=== PATIENT | male | born 1955 | race Caucasian/White ===

== ENCOUNTER 2020-02-01 01:36 | Emergency (ER) | payer MEDICARE, OTHER, SELFPAY ==
[2020-02-01] VITALS (7 sets, daily range): BP systolic 148–185; BP diastolic 78–89; PULSE 60–68; RESP 16; TEMP 36.4; O2SAT 97–98; BMI 32.7
[2020-02-01 02:43] LABS: WBC Urine None Seen (0-5/HPF)
[2020-02-01 02:49] LABS: Appearance Urine UA CLOUDY; Bilirubin Urine UA NEGATIVE (NEGATIVE); Glucose Urine UA NEGATIVE (Negative); Ketones Urine UA TRACE (NEGATIVE); Leukocyte Esterase Urine UA TRACE (NEGATIVE); Nitrite Urine UA POSITIVE (Negative); Occult Blood Urine UA 3+ (Negative); Protein Urine UA 3+ (Negative); Specific Gravity Urine UA 1.025 (1.000-1.035); Urobilinogen Urine UA 0.2 E.U./dL (0.2); pH Urine UA 6.5 (4.5-8.0)
[2020-02-01 02:52] LABS: Color Urine UA BROWN; RBC Urine >100/HPF (0-5/HPF)
[2020-02-01 02:53] LABS: Amorphous Sediment Urine 1+; Bacteria Urine Moderate (10-30); Mucus Urine 1+ (Negative); Squamous Epithelial Cell Urine 0-1 /HPF (0-5/HPF)
[2020-02-01 02:54] LABS: Culture Indicated Urine Specimen Cultured
--- NOTE | 2020-02-01 03:17 | ED_ITS ---
HPI - Male Genitourinary General Chief complaint: Urogenital-Male Stated complaint: prostate sgy December 31, bleeding, can't pee Time Seen by Provider: 02/01/20 01:50 Source: patient Mode of arrival: Ambulatory Limitations: no limitations History of Present Illness HPI Narrative: 64-year-old gentleman status post event she assisted prostatectomy 6 weeks ago at [facility] in [place] to treat prostate cancer. He had a Klein catheter in for approximately 10 days postop period was doing well with the catheter out until yesterday when he noticed significant clots. The clots became significant enough that they caused an obstructive uropathy. He tried using is a tie to break up the clot but was unsuccessful. He comes into the emergency room with acute urinary retention. Review of Systems Review of Systems Narrative: Pertinent positive and negative findings as per HPI Remainder of review of systems is otherwise unremarkable for Constitutional: Fevers, chills, weakness ENT: No sore throat, neck pain, ear pain CV: Chest pain, palpitations, dyspnea on exertion Respiratory: Cough, wheeze, dyspnea GI: Nausea, vomiting, diarrhea, change in bowel habits, black or bloody stools Neuro: Syncope, dizziness, tingling Patient History Medical History (Updated 02/01/20 @ 03:40 by Blanca Stephen MD) Prostate cancer (Acute) Surgical History (Updated 02/01/20 @ 03:40 by Blanca Stephen MD) H/O prostatectomy (Acute) Social History Smoking Status: Never smoker Smoking Status: Never smoker alcohol intake frequency: a few times a week Alcohol type: hard liquor Substance Use Type: does not use Exam Narrative Exam Narrative: General: Alert appropriate in no acute distress Respiratory: Able to speak in full sentences, no obvious respiratory distress Abdomen: Nontender, good bowel tones, no flank pain, surgical sites are healing nicely Skin: No obvious rashes, warm and dry Neurologic: Grossly intact no obvious asymmetries or abnormalities Psych, appropriate insight and affect, cooperative Three way Klein catheter is placed without difficulty. Initially dark red urine with significant clots. Cleared nicely to minimal blood-tinged color Initial Vital Signs Initial Vital Signs: Vital Signs Temperature 97.6 F 02/01/20 01:47 Pulse Rate 62 02/01/20 01:47 Respiratory Rate 16 02/01/20 01:47 Blood Pressure 185/83 H 02/01/20 01:47 Pulse Oximetry 97 02/01/20 01:47 Course Orders Ordered: ED Orders 02/01/20 02:32 Urinalysis and Microscopic Stat Urine Culture Stat Discontinued Medications Ciprofloxacin (Cipro) 500 mg PO NOW ONE Stop: 02/01/20 03:18 Last Admin: 02/01/20 03:29 Dose: 500 mg Documented by: FRANCESCO Vital Signs Vital signs: Vital Signs - 8 hr 02/01/20 01:47 Temperature 97.6 F Pulse Rate 62 Respiratory Rate 16 Blood Pressure 185/83 H Pulse Oximetry 97 MDM - Male Genitourinary Medical Records Attestation: I reviewed the patient's medical records. Lab Data Attestation: I reviewed the patient's lab results. Labs: Lab Results 02/01/20 Range/Units 02:32 Urine Color Brown Urine Appearance Cloudy Urine pH 6.5 (4.5-8.0) Ur Specific [place] 1.025 (1.000-1.035) Urine Protein 3+ H (Negative) Urine Glucose (UA) Negative (Negative) g/dL Urine Ketones Trace H (NEGATIVE) Urine Occult Blood 3+ H (Negative) Urine Nitrate Positive (Negative) Urine Bilirubin Negative (NEGATIVE) Urine Urobilinogen 0.2 (0.2) E.U./dL Ur Leukocyte Esterase Trace H (NEGATIVE) Urine RBC >100/hpf H (0-5/HPF) Urine WBC None seen (0-5/HPF) Ur Squamous Epith Cells 0-1 /hpf (0-5/HPF) Amorphous Sediment 1+ Urine Bacteria Moderate (10-30) H (None) Urine Mucus 1+ H (Negative) Ur Culture Indicated? Specimen cultured [facility] Narrative Medical decision making narrative: Blood clots with acute urinary retention 6 weeks post surgery. He is not on any blood thinners. No pain or indication of infection. Three way Klein catheter is placed have asked him to leave it for at least 3 days. He is currently traveling is unsure where he will be in 3 days but feels he can access medical care without difficulty. He is safe for home discharge at this time. Discharge Plan Departure Patient Disposition: Home Clinical Impression: Acute retention of urine Instructions: DI for Urinary Retention in Men Activity Restrictions/Additional Instructions: Thank you for coming in today I suspect that the bleeding that you noted is related to your recent surgery and healing. Because there was so much blood and then so much fluid to flush her bladder we were not able to get a urine sample but I would recommend 3 days of ciprofloxacin to prevent any infections. A 3 way Klein catheter was placed and your bladder was irrigated with 6 L of fluid. By the end of the irrigation, the fluid was essentially clear and no significant clots were felt to be remaining in the bladder. I am going to suggest a Klein catheter stay in place for another 3 days and not be removed if they are still clots that are coming out. You will need to be re-evaluated in 3 days to help with Klein catheter removal. You can follow-up in our emergency department, with your urologist if your in [place] or with a primary care/urgent care/emergency department in the city that you are visiting in 3 days time. Please return to the emergency room if you develop any fevers, the catheter is blocked, your having worsening bleeding or you develop new or different concerning symptoms. I hope you continue to heal completely
[2020-02-01] MEDS: CIPROFLOXACIN 500 MG TABLET PO (03:29)
--- NOTE | 2020-02-01 04:01 | PC.NURSE ---
leg bag applied and education on care of rivera given.
== END 2020-02-01 04:02 | disposition home or self-care (01) ==
PROVIDERS: Emergency Provider Emergency Medicine
DX: R33.8 Other retention of urine (principal)
CPT/HCPCS: 51701; 51798; 81001; 87086

== ENCOUNTER 2020-02-01 10:37 | Emergency (ER) | payer MEDICARE, OTHER, SELFPAY ==
[2020-02-01 10:54] VITALS: BP 141/85; PULSE 65; RESP 19; TEMP 37.1; O2SAT 97; BMI 32.7
--- NOTE | 2020-02-01 11:09 | ED_ITS ---
HPI - Male Genitourinary <Amaris Escalona PA-C - Last Filed: 02/01/20 21:10> General Chief complaint: Urogenital-Male Stated complaint: placing catheter seen last evening Time Seen by Provider: 02/01/20 11:07 Source: patient Mode of arrival: Ambulatory Limitations: no limitations History of Present Illness HPI Narrative: This is a 64-year-old who was seen in the emergency department last night, he had a prostatectomy approximately 4 weeks ago in [place]. He was doing well but then in the last few weeks has been passing blood and clots, came to the ED last night because he could not urinate. He had a Klein catheter placed and flushed and was doing better was sent home with a plan to keep the catheter in for 3 days, however last night he states he had a lot of irritation with it this morning he passed some clots and was having a lot of difficulty urinating again, he called his urologist in [place] and they advised he should come back to the emergency department and get it set up for system to possibly self flush, the suspicion is that he is still dealing with healing process from his surgery, he is passing some clotting blood but otherwise has been doing well, without other symptoms except he states he has been a little bit more sleepy than usual for the past week stating a week ago I was full of piss and vinegar, this week not so much.This morning he says it after he removed the catheter there was ?a blood clot that looked like a long worm at the tip? He states he might be able to pee right now.? He denies any other symptoms. MD Complaint: dysuria and other (urinary retention/blood clots) Onset (ago): week(s) Related Data Previous Rx's Medication Instructions Recorded ciprofloxacin HCl [Cipro] 500 mg PO BID #6 tab 02/01/20 tizanidine 4 mg PO Q8H PRN #20 cap 02/01/20 Allergies Allergy/AdvReac Type Severity Reaction Status Date / Time No Known Drug Allergies Allergy Verified 02/01/20 10:59 Review of Systems <Amaris Escalona PA-C - Last Filed: 02/01/20 21:10> Review of Systems Narrative: GENERAL: Denies chills, fatigue, malaise, fever, sweats. HEENT: Denies sinus pain, ear pain, sore throat, difficulty swallowing, dizziness. RESPIRATORY: Denies dyspnea, cough, wheezing, hemoptysis, sputum. CARDIOVASCULAR: Denies chest pain, palpitations, orthopnea, edema, GASTROINTESTINAL: Denies nausea, vomiting, abdominal pain, diarrhea, constipation, melena. : Denies dysuria, frequency, incontinence, positive for recent hematuria with some clotting, and urinary retention. MUSCULOSKELETAL: denies weakness, joint pain, or bony pain SKIN: Denies rash, skin lesions, or other NEUROLOGIC: Denies weakness, headache, numbness, change in speech, confusion, seizures, incoordination. PSYCHIATRIC: No concerning psychosocial issues. 12 point review of systems is negative except for those stated above Patient History <Amaris Escalona PA-C - Last Filed: 02/01/20 21:10> Medical History Prostate cancer (Acute) Surgical History H/O prostatectomy (Acute) Social History Smoking Status: Never smoker Smoking Status: Never smoker alcohol intake frequency: a few times a week Alcohol type: hard liquor Substance Use Type: does not use Exam <Amaris Escalona PA-C - Last Filed: 02/01/20 21:10> Narrative Exam Narrative: GENERAL: 64 year old patient appears stated age. Well-nourished, well-developed patient, in mild distress. HEAD: Atraumatic. Normocephalic. EYES: Pupils equal round and reactive. Extraocular motions intact. No scleral icterus. No injection or drainage. ENT: Nose without bleeding, purulent drainage. Airway patent. NECK: Trachea midline. Non tender CARDIOVASCULAR: Regular rate and rhythm without murmurs, gallops, or rubs. RESPIRATORY: Clear to auscultation. Breath sounds equal bilaterally. No wheezes, rales, or rhonchi. GASTROINTESTINAL: Abdomen soft, there is very slight tenderness of the RLQ, otherwise non-tender, nondistended. : Exam is deferred EXTREMITIES: No edema or joint tenderness. BACK: Nontender without deformity or crepitance. No flank tenderness. NEURO: AOx3. SKIN: No rash or erythema of visible areas Initial Vital Signs Initial Vital Signs: Vital Signs Temperature 98.7 F 02/01/20 10:54 Pulse Rate 65 02/01/20 10:54 Respiratory Rate 19 02/01/20 10:54 Blood Pressure 141/85 H 02/01/20 10:54 Pulse Oximetry 97 02/01/20 10:54 <Demar Rivera MD - Last Filed: 02/02/20 07:34> Initial Vital Signs Initial Vital Signs: Vital Signs Temperature 98.7 F 02/01/20 10:54 Pulse Rate 65 02/01/20 10:54 Respiratory Rate 19 02/01/20 10:54 Blood Pressure 141/85 H 02/01/20 10:54 Pulse Oximetry 97 02/01/20 10:54 Scores <Amaris Escalona PA-C - Last Filed: 02/01/20 21:10> GCS [place] coma scale eye opening: Spontaneous [place] coma scale verbal response: Orientated [place] coma scale motor response: Obey commands [place] coma scale total score: 15 Course <Amaris Escalona PA-C - Last Filed: 02/01/20 21:10> Orders Ordered: Discontinued Medications Lidocaine HCl (Urojet) 5 ml TOP NOW ONE Stop: 02/01/20 13:20 Last Admin: 02/01/20 14:00 Dose: 5 ml Documented by: ALE Vital Signs Vital signs: Vital Signs - 8 hr 02/01/20 14:26 Pulse Rate 65 Blood Pressure 126/75 Pulse Oximetry 98 <Demar Rivera MD - Last Filed: 02/02/20 07:34> Orders Ordered: Discontinued Medications Lidocaine HCl (Urojet) 5 ml TOP NOW ONE Stop: 02/01/20 13:20 Last Admin: 02/01/20 14:00 Dose: 5 ml Documented by: ALE Vital Signs Vital signs: Vital Signs - 8 hr 02/01/20 14:26 Pulse Rate 65 Blood Pressure 126/75 Pulse Oximetry 98 MDM - Male Genitourinary <Amaris Escalona PA-C - Last Filed: 02/01/20 21:10> Differential Diagnosis Differential diagnosis: Likely urinary tract infection, urethritis, acute retention of urine and other (Hematuria) Medical Records Attestation: I reviewed the patient's medical records. Lab Data Attestation: I reviewed the patient's lab results. Result diagrams: 02/01/20 13:07 02/01/20 13:07 Labs: Lab Results 02/01/20 02/01/20 02/01/20 Range/Units 12:00 13:07 13:07 WBC 5.2 (4.5-11.0) X10^3/uL RBC 4.17 L (4.5-5.9) X10^6/uL Hgb 13.0 L (13.5-17.5) g/dL Hct 38.2 L (41-53) % MCV 91.7 (80-100) fL MCH 31.2 (26-34) PG MCHC 34.0 (30-36) % RDW 13.8 (11.6-14.8) % Plt Count 175 (150-400) X10^3/uL Neut % (Auto) 65.1 (50-75) % Lymph % (Auto) 24.9 L (25-40) % Amelia % (Auto) 7.4 (3-14) % Eos % (Auto) 1.9 L (2-4) % Baso % (Auto) 0.7 (0-2) % Neut # (Auto) 3400 (6975-0742) /uL Lymph # (Auto) 1300 (2628-5563) /uL Amelia # (Auto) 400 (0-900) /uL Eos # (Auto) 100 (0-450) /uL Baso # (Auto) 0 (0-100) /uL Sodium 137 (137-145) mmol/L Potassium 4.6 (3.4-5.1) mmol/L Chloride 106 (98-107) mmol/L Carbon Dioxide 26 (22-32) mmol/L BUN 22 H (9-20) mg/dL Creatinine 0.93 (0.66-1.25) mg/dL Estimated GFR > 60.0 (>60) mL/min BUN/Creatinine Ratio 23.7 H (6-22) Glucose 88 (80-110) mg/dL Calcium 9.3 (8.4-10.2) mg/dL Total Bilirubin 0.7 (0.2-1.3) mg/dL AST 24 (17-59) IU/L ALT 15 (<50) IU/L Alkaline Phosphatase 69 (38-126) U/L Total Protein 6.7 (6.3-8.2) g/dL Albumin 4.1 (3.5-5.0) g/dL Globulin 2.6 (1.7-4.1) g/dL Albumin/Globulin Ratio 1.6 (1.0-2.8) Prostate Specific Ag (0.10-4.00) ng/mL Urine Color Yellow Urine Appearance Clear Urine pH 5.0 (4.5-8.0) Ur Specific [place] >=1.030 H (1.000-1.035) Urine Protein Trace H (Negative) Urine Glucose (UA) Negative (Negative) g/dL Urine Ketones 1+ H (NEGATIVE) Urine Occult Blood 3+ H (Negative) Urine Nitrate Negative (Negative) Urine Bilirubin Negative (NEGATIVE) Urine Urobilinogen 0.2 (0.2) E.U./dL Ur Leukocyte Esterase Negative (NEGATIVE) Urine RBC 10-30/hpf H (0-5/HPF) Urine WBC None seen (0-5/HPF) Ur Squamous Epith Cells 1-5 /hpf (0-5/HPF) Urine Bacteria None seen (None) Ur Culture Indicated? Cult not indicated 02/01/20 Range/Units 13:07 WBC (4.5-11.0) X10^3/uL RBC (4.5-5.9) X10^6/uL Hgb (13.5-17.5) g/dL Hct (41-53) % MCV (80-100) fL MCH (26-34) PG MCHC (30-36) % RDW (11.6-14.8) % Plt Count (150-400) X10^3/uL Neut % (Auto) (50-75) % Lymph % (Auto) (25-40) % Amelia % (Auto) (3-14) % Eos % (Auto) (2-4) % Baso % (Auto) (0-2) % Neut # (Auto) (5136-9838) /uL Lymph # (Auto) (7334-9562) /uL Amelia # (Auto) (0-900) /uL Eos # (Auto) (0-450) /uL Baso # (Auto) (0-100) /uL Sodium (137-145) mmol/L Potassium (3.4-5.1) mmol/L Chloride (98-107) mmol/L Carbon Dioxide (22-32) mmol/L BUN (9-20) mg/dL Creatinine (0.66-1.25) mg/dL Estimated GFR (>60) mL/min BUN/Creatinine Ratio (6-22) Glucose (80-110) mg/dL Calcium (8.4-10.2) mg/dL Total Bilirubin (0.2-1.3) mg/dL AST (17-59) IU/L ALT (<50) IU/L Alkaline Phosphatase (38-126) U/L Total Protein (6.3-8.2) g/dL Albumin (3.5-5.0) g/dL Globulin (1.7-4.1) g/dL Albumin/Globulin Ratio (1.0-2.8) Prostate Specific Ag < 0.064 L (0.10-4.00) ng/mL Urine Color Urine Appearance Urine pH (4.5-8.0) Ur Specific [place] (1.000-1.035) Urine Protein (Negative) Urine Glucose (UA) (Negative) g/dL Urine Ketones (NEGATIVE) Urine Occult Blood (Negative) Urine Nitrate (Negative) Urine Bilirubin (NEGATIVE) Urine Urobilinogen (0.2) E.U./dL Ur Leukocyte Esterase (NEGATIVE) Urine RBC (0-5/HPF) Urine WBC (0-5/HPF) Ur Squamous Epith Cells (0-5/HPF) Urine Bacteria (None) Ur Culture Indicated? MDM Narrative Medical decision making narrative: This is a well-appearing 64-year-old who was seen yesterday in the emergency department the similar complaints as today, having some issues with bleeding and clotting with urination, and some urinary retention today. He was able to urinate in the emergency department a small rodney unt, catheter was placed, his bladder was flushed again, with minimal return of clots or blood, 3 way catheter was left in place, he was given instructions regarding care of this, as well as how to self cath, he already has called and has plans for follow-up appointment with Urology locally. His labs were unremarkable today. Emergency return precautions provided, all questions were answered. <Demar Rivera MD - Last Filed: 02/02/20 07:34> Lab Data Labs: Lab Results 02/01/20 02/01/20 02/01/20 Range/Units 12:00 13:07 13:07 WBC 5.2 (4.5-11.0) X10^3/uL RBC 4.17 L (4.5-5.9) X10^6/uL Hgb 13.0 L (13.5-17.5) g/dL Hct 38.2 L (41-53) % MCV 91.7 (80-100) fL MCH 31.2 (26-34) PG MCHC 34.0 (30-36) % RDW 13.8 (11.6-14.8) % Plt Count 175 (150-400) X10^3/uL Neut % (Auto) 65.1 (50-75) % Lymph % (Auto) 24.9 L (25-40) % Amelia % (Auto) 7.4 (3-14) % Eos % (Auto) 1.9 L (2-4) % Baso % (Auto) 0.7 (0-2) % Neut # (Auto) 3400 (3785-9965) /uL Lymph # (Auto) 1300 (3444-6144) /uL Amelia # (Auto) 400 (0-900) /uL Eos # (Auto) 100 (0-450) /uL Baso # (Auto) 0 (0-100) /uL Sodium 137 (137-145) mmol/L Potassium 4.6 (3.4-5.1) mmol/L Chloride 106 (98-107) mmol/L Carbon Dioxide 26 (22-32) mmol/L BUN 22 H (9-20) mg/dL Creatinine 0.93 (0.66-1.25) mg/dL Estimated GFR > 60.0 (>60) mL/min BUN/Creatinine Ratio 23.7 H (6-22) Glucose 88 (80-110) mg/dL Calcium 9.3 (8.4-10.2) mg/dL Total Bilirubin 0.7 (0.2-1.3) mg/dL AST 24 (17-59) IU/L ALT 15 (<50) IU/L Alkaline Phosphatase 69 (38-126) U/L Total Protein 6.7 (6.3-8.2) g/dL Albumin 4.1 (3.5-5.0) g/dL Globulin 2.6 (1.7-4.1) g/dL Albumin/Globulin Ratio 1.6 (1.0-2.8) Prostate Specific Ag (0.10-4.00) ng/mL Urine Color Yellow Urine Appearance Clear Urine pH 5.0 (4.5-8.0) Ur Specific [place] >=1.030 H (1.000-1.035) Urine Protein Trace H (Negative) Urine Glucose (UA) Negative (Negative) g/dL Urine Ketones 1+ H (NEGATIVE) Urine Occult Blood 3+ H (Negative) Urine Nitrate Negative (Negative) Urine Bilirubin Negative (NEGATIVE) Urine Urobilinogen 0.2 (0.2) E.U./dL Ur Leukocyte Esterase Negative (NEGATIVE) Urine RBC 10-30/hpf H (0-5/HPF) Urine WBC None seen (0-5/HPF) Ur Squamous Epith Cells 1-5 /hpf (0-5/HPF) Urine Bacteria None seen (None) Ur Culture Indicated? Cult not indicated 02/01/20 Range/Units 13:07 WBC (4.5-11.0) X10^3/uL RBC (4.5-5.9) X10^6/uL Hgb (13.5-17.5) g/dL Hct (41-53) % MCV (80-100) fL MCH (26-34) PG MCHC (30-36) % RDW (11.6-14.8) % Plt Count (150-400) X10^3/uL Neut % (Auto) (50-75) % Lymph % (Auto) (25-40) % Amelia % (Auto) (3-14) % Eos % (Auto) (2-4) % Baso % (Auto) (0-2) % Neut # (Auto) (2206-1407) /uL Lymph # (Auto) (4285-7380) /uL Amelia # (Auto) (0-900) /uL Eos # (Auto) (0-450) /uL Baso # (Auto) (0-100) /uL Sodium (137-145) mmol/L Potassium (3.4-5.1) mmol/L Chloride (98-107) mmol/L Carbon Dioxide (22-32) mmol/L BUN (9-20) mg/dL Creatinine (0.66-1.25) mg/dL Estimated GFR (>60) mL/min BUN/Creatinine Ratio (6-22) Glucose (80-110) mg/dL Calcium (8.4-10.2) mg/dL Total Bilirubin (0.2-1.3) mg/dL AST (17-59) IU/L ALT (<50) IU/L Alkaline Phosphatase (38-126) U/L Total Protein (6.3-8.2) g/dL Albumin (3.5-5.0) g/dL Globulin (1.7-4.1) g/dL Albumin/Globulin Ratio (1.0-2.8) Prostate Specific Ag < 0.064 L (0.10-4.00) ng/mL Urine Color Urine Appearance Urine pH (4.5-8.0) Ur Specific [place] (1.000-1.035) Urine Protein (Negative) Urine Glucose (UA) (Negative) g/dL Urine Ketones (NEGATIVE) Urine Occult Blood (Negative) Urine Nitrate (Negative) Urine Bilirubin (NEGATIVE) Urine Urobilinogen (0.2) E.U./dL Ur Leukocyte Esterase (NEGATIVE) Urine RBC (0-5/HPF) Urine WBC (0-5/HPF) Ur Squamous Epith Cells (0-5/HPF) Urine Bacteria (None) Ur Culture Indicated? Discharge Plan Departure Patient Disposition: Home Clinical Impression: Acute retention of urine Hematuria Qualifiers: Hematuria type: other microscopic Qualified Code(s): R31.29 - Other microscopic hematuria Discharge Date/Time: 02/01/20 14:42 Activity Restrictions/Additional Instructions: You for letting us to be part of your care in the emergency department today. There is no evidence of an emergent or life threatening illness at this time, but follow up with your doctor in 1-2 days is recommended nonetheless to continue to rule out serious underlying causes of your symptoms. Please call the office for an appointment. Please return to the Emergency Department for any worsening or persistent symptoms. Please take medications as directed. Please keep the catheter in until your follow-up appointment with your urologist, you should continue to do self flushing as needed and as you reviewed with the nurse, also please monitor for changes in your symptoms including fever chills nausea vomiting or any other symptoms of concern to you. Your labs today looked okay, I recommend you continue to stay well hydrated. Prescriptions: No Action tizanidine 4 mg capsule 4 mg PO Q8H PRN (Reason: muscle spasticity) Qty: 20 RF: 0 ciprofloxacin HCl [Cipro] 500 mg tablet 500 mg PO BID Qty: 6 RF: 0 Referrals: Kelsie Pena MD [Physician] - <Demar Rivera MD - Last Filed: 02/02/20 07:34> Cosign ED Attending Cosignature Attestation: I was immediately available in the department for consultation. This documentation has been reviewed and I agree with assessment and plan. Supervised by Demar Rivera MD
--- NOTE | 2020-02-01 11:47 | PC.NURSE ---
Pt has 5 healing lap sites to abdomen. Pain to RLQ with palpation
[2020-02-01 12:23] LABS: Bacteria Urine None Seen; WBC Urine None Seen (0-5/HPF)
[2020-02-01 12:29] LABS: Appearance Urine UA CLEAR; Bilirubin Urine UA NEGATIVE (NEGATIVE); Color Urine UA YELLOW; Glucose Urine UA NEGATIVE (Negative); Ketones Urine UA 1+ (NEGATIVE); Leukocyte Esterase Urine UA NEGATIVE (NEGATIVE); Nitrite Urine UA NEGATIVE (Negative); Occult Blood Urine UA 3+ (Negative); Protein Urine UA TRACE (Negative); Specific Gravity Urine UA >=1.030 (1.000-1.035); Urobilinogen Urine UA 0.2 E.U./dL (0.2)
[2020-02-01 12:38] LABS: Culture Indicated Urine Cult Not Indicated; RBC Urine 10-30/HPF (0-5/HPF); Squamous Epithelial Cell Urine 1-5 /HPF (0-5/HPF)
[2020-02-01 13:27] LABS: Add Manual Diff / Slide Review NO; Basophils Absolute Auto 0 /uL (0-100); Basophils Percent Auto 0.7 % (0-2); Eosinophils Absolute Auto 100 /uL (0-450); Eosinophils Percent Auto 1.9 % (2-4); Hematocrit 38.2 % (41-53); Lymphocytes Absolute Auto 1300 /uL (1100-4500); Lymphocytes Percent Auto 24.9 % (25-40); Mean Corpuscular Hemoglobin 31.2 PG (26-34); Mean Corpuscular Volume 91.7 fL (80-100); Monocytes Absolute Auto 400 /uL (0-900); Monocytes Percent Auto 7.4 % (3-14); Neutrophils Absolute Auto 3400 /uL (1500-7000); Neutrophils Percent Auto 65.1 % (50-75); Platelet Count 175 X10^3/uL (150-400); Red Blood Cell Count 4.17 X10^6/uL (4.5-5.9); Red Cell Distribution Width 13.8 % (11.6-14.8); White Blood Cell Count 5.2 X10^3/uL (4.5-11.0)
[2020-02-01 13:42] LABS: Alanine Aminotransferase 15 IU/L (<50); Albumin 4.1 g/dL (3.5-5.0); Albumin Globulin Ratio 1.6 (1.0-2.8); Alkaline Phosphatase 69 U/L (38-126); Aspartate Aminotransferase 24 IU/L (17-59); BUN Creatinine Ratio 23.7 (6-22); Bilirubin Total 0.7 mg/dL (0.2-1.3); Blood Urea Nitrogen 22 mg/dL (9-20); Calcium 9.3 mg/dL (8.4-10.2); Carbon Dioxide 26 mmol/L (22-32); Chloride 106 mmol/L (98-107); Estimated Glomerular Filt Rate > 60.0 mL/min (>60); Globulin 2.6 g/dL (1.7-4.1); Glucose 88 mg/dL (80-110); HEMOLYSIS < 15 (0-50); Potassium 4.6 mmol/L (3.4-5.1); Sodium 137 mmol/L (137-145); Total Protein 6.7 g/dL (6.3-8.2)
[2020-02-01] MEDS: LIDOCAINE 2% (UROJET) 5 ML GEL TOP (14:00)
--- NOTE | 2020-02-01 14:19 | PC.NURSE ---
Catheter placed, 18 fr, attempted 20fr and 22fr but unable to advance. Pt tolerated procedure well. Irrigation discussed with evans. Pt demonstrated understanding. Clean materials provided to patient.
[2020-02-01 14:26] VITALS: BP 126/75; PULSE 65; O2SAT 98
[2020-02-01 14:38] LABS: Prostate Specific Antigen < 0.064 ng/mL (0.10-4.00)
== END 2020-02-01 14:42 | disposition home or self-care (01) ==
PROVIDERS: Emergency Provider Student in an Organized Health Care Education/Training Program
DX: R33.8 Other retention of urine (principal); R31.29 Other microscopic hematuria; C61 Malignant neoplasm of prostate; Z90.79 Acquired absence of other genital organ(s)
CPT/HCPCS: 36415; 51701; 51798; 80053; 81001; 84153; 85025; 87086; 99284